=== PATIENT | male | born 1960 | race Caucasian/White ===

== ENCOUNTER → 2019-04-10 15:38 | Outpatient (CLI) | payer BC, SELFPAY ==
--- NOTE | ~2019-04-10 | CT_ITS ---
EXAMINATION: CT sinus wo con DATE: 04/10/2019 16:14 INDICATION: Sinus cyst and sinus pressure TECHNIQUE: Computed tomography (CT) of the paranasal sinuses was performed without intravenous contra st. The dose-length product (DLP) was 270.28 mGy-cm. Iterative reconstruction was used. COMPARISON: None FINDINGS: The frontal sinuses are hypoplastic. There is otherwise normal development and pneumatizati on of the paranasal sinuses. There is a 2 cm cyst or polyp of the left maxillary sinus. There is mild mucosal thickening of the right anterior ethmoidal air cells. The sphenoid, left ethmoid, and maxill jah sinuses are otherwise clear. The bilateral ostiomeatal complexes are patent. Visualized soft tiss ues are unremarkable. There is minimal opacification of the left mastoid air cells. IMPRESSION: 1. 2 cm polyp or mucous retention cyst of the left maxillary sinus. 2. Minimal opacification of the left mastoid air cells and right anterior ethmoidal air cells. Reviewed, dictated and finalized at location A. ATOLOGIST IMPRESSION: 1. 2 cm polyp or mucous retention cyst of the left maxillary sinus. 2. Minimal opacification of the left mastoid air cells and right anterior ethmo idal air cells.
== END ==
PROVIDERS: Visit Provider Otolaryngology
DX: J34.1 Cyst and mucocele of nose and nasal sinus (principal); R93.89 Abnormal findings on diagnostic imaging of other specified body structures
CPT/HCPCS: 70486